=== PATIENT | female | born 1960 | race Caucasian/White ===

== ENCOUNTER → 2016-04-15 | Outpatient (CLI) | payer BC | LOC: RAD 02:33 | DX: Z12.31 Encounter for screening mammogram for malignant neoplasm of breast (principal) ==

== ENCOUNTER → 2016-04-21 | Outpatient (CLI) | payer BC | LOC: RAD 01:21 | DX: R92.0 Mammographic microcalcification found on diagnostic imaging of breast (principal) ==

== ENCOUNTER 2018-08-26 08:06 | Emergency (ER) | payer BC ==
[~2018-08-26] VITALS: Ht 162.6 cm; Wt 86.2 kg
[2018-08-26] MEDS ORDERED: NOLVADEX 10MG T10 M1 PO (08:11)
[2018-08-26] MEDS ORDERED: NAPROSYN500 MG PO (09:54)
[2018-08-26] MEDS ORDERED: TRAMADOL 50 MG50 MG PO (09:54)
[2018-08-26 10:19] VITALS: BP 123/80
== END 2018-08-26 10:20 | disposition home or self-care (01) ==
LOC: ER 08:06
DX: S93.521A Sprain of metatarsophalangeal joint of right great toe, initial encounter (principal); W10.9XXA Fall (on) (from) unspecified stairs and steps, initial encounter; Y93.89 Activity, other specified; Y92.89 Other specified places as the place of occurrence of the external cause; Y99.8 Other external cause status; Z90.710 Acquired absence of both cervix and uterus; Z90.11 Acquired absence of right breast and nipple; Z88.5 Allergy status to narcotic agent